=== PATIENT | female | born 1945 | race African-American/Black ===

== ENCOUNTER 2021-05-13 13:39 | Inpatient (IN) | payer MEDICARE, OTHER ==
[~2021-05-13] VITALS: Ht 180.3 cm; Wt 71.2 kg
[2021-05-13] MEDS ORDERED: iron (13:49)
[2021-05-13] MEDS ORDERED: METO5TAB7 PO (13:49)
[2021-05-13] MEDS ORDERED: METO-396 PO (13:49)
[2021-05-13] MEDS ORDERED: FURO40TA5 PO (13:49)
[2021-05-13] MEDS ORDERED: FOLI-43 PO (13:49)
[2021-05-13] MEDS ORDERED: ASPI-1497 PO (13:49)
[2021-05-13] MEDS ORDERED: SEVE800T8 PO (13:49)
[2021-05-13] MEDS ORDERED: ONDANSETRON HCL 4MG/2ML INJ IV STA (14:07)
[2021-05-13 15:50] LABS: HEMATOCRIT. 25.6 % (36.0-48.0); HEMOGLOBIN. 7.9 g/dL (12.0-16.0); MEAN CORPUSCULAR HEMOGLOBIN 27.8 pg (28.0-32.0); MEAN CORPUSCULAR VOLUME 90.4 fL (81.0-99.0); MEAN PLATELET VOLUME 7.6 fl (7.4-10.4); PLATELET 309 x1000/uL (130-400); RED BLOOD CELL COUNT 2.83 mill/uL (4.2-5.4); RED CELL DISTRIBUTION WIDTH 19.8 % (11.6-14.6)
[2021-05-13 15:59] LABS: CHLORIDE 98 mEq/L (98-107)
[2021-05-13 16:10] LABS: PLATELET ESTIMATE NORMAL
[2021-05-13] MEDS: PANTOPRAZOLE SODIUM 40 MG/VIAL IV SCH (21:15)
[2021-05-13] MEDS ORDERED: ACETAMINOPHEN 325MG TABLET PO PRN (21:15)
[2021-05-13] MEDS ORDERED: ONDANSETRON HCL 4MG/2ML INJ IV PRN (21:15)
[2021-05-13] MEDS ORDERED: DIPHENHYDRAMINE 50MG/ML VIAL IV PRN (21:15)
[2021-05-14] VITALS (7 sets, daily range): BP systolic 89–109; BP diastolic 36–65
[2021-05-14 07:59] LABS: HEMATOCRIT. 22.4 % (36.0-48.0); MEAN CORPUSCULAR HEMOGLOBIN 28.3 pg (28.0-32.0); MEAN CORPUSCULAR VOLUME 92.5 fL (81.0-99.0); MEAN PLATELET VOLUME 7.6 fl (7.4-10.4); PLATELET 236 x1000/uL (130-400); RED BLOOD CELL COUNT 2.42 mill/uL (4.2-5.4); RED CELL DISTRIBUTION WIDTH 19.9 % (11.6-14.6)
[2021-05-14 08:07] LABS: CHLORIDE 102 mEq/L (98-107)
[2021-05-14 08:11] LABS: HEMOGLOBIN. 6.8 g/dL (12.0-16.0)
[2021-05-14 08:30] LABS: LDL CHOLESTEROL 17 mg/dL (5-100)
[2021-05-14 08:32] LABS: HDL CHOLESTEROL 45 mg/dL (40-59)
[2021-05-14 08:42] LABS: PLATELET ESTIMATE NORMAL
[2021-05-14] MEDS: PANTOPRAZOLE SODIUM 40 MG/VIAL IV SCH (09:00)
[2021-05-14 12:45] LABS: HEPATITIS B SURFACE ANTIGEN NEGATIVE
[2021-05-14] MEDS: EPOETIN ALFA-EPBX 10,000 UNIT/ML VIAL SUBCUT SCH (21:27)
[2021-05-14] MEDS ORDERED: DEXTROSE 50% WATER 50ML SYRINGE IV PRN (21:30)
[2021-05-14] MEDS: INSULIN LISPRO 100 UNITS/ML SUBCUT SCH (21:34)
[2021-05-14] MEDS: BLOOD SUGAR DIAGNOSTIC STRIP TEST SCH (21:52)
[2021-05-15] VITALS: BP 103/36
[2021-05-15 00:45] LABS: HEMATOCRIT 25.8 % (36.0-48.0); HEMOGLOBIN 8.1 g/dL (12.0-16.0)
[2021-05-15 01:43] LABS: INR 1.2
[2021-05-15 04:00] VITALS: BP 103/39
[2021-05-15] MEDS: BLOOD SUGAR DIAGNOSTIC STRIP TEST SCH ×4 (06:27→21:42)
[2021-05-15] MEDS: INSULIN LISPRO 100 UNITS/ML SUBCUT SCH (06:27)
[2021-05-15 08:00] VITALS: BP 92/40
[2021-05-15] MEDS: PANTOPRAZOLE SODIUM 40 MG/VIAL IV SCH ×2 (08:53→08:54)
[2021-05-15 12:00] VITALS: BP 95/39
[2021-05-15 16:00] VITALS: BP 91/35
[2021-05-15 20:00] VITALS: BP 100/36
[2021-05-16] VITALS: BP 115/47
[2021-05-16 04:00] VITALS: BP 115/47
[2021-05-16] MEDS: BLOOD SUGAR DIAGNOSTIC STRIP TEST SCH ×4 (06:36→21:00)
[2021-05-16 08:00] VITALS: BP 106/56
[2021-05-16] MEDS: PANTOPRAZOLE SODIUM 40 MG/VIAL IV SCH (09:26)
[2021-05-16] MEDS: POVIDONE-IODINE 10% TOPICAL SOLN 240ML TOP SCH (09:26)
[2021-05-16 12:00] VITALS: BP 110/60
[2021-05-16 16:00] VITALS: BP 115/60
[2021-05-16 20:00] VITALS: BP 126/78
[2021-05-16] MEDS: EPOETIN ALFA-EPBX 10,000 UNIT/ML VIAL SUBCUT SCH (22:01)
[2021-05-17] VITALS: BP 110/40
[2021-05-17 04:00] VITALS: BP 132/58
[2021-05-17] MEDS: BLOOD SUGAR DIAGNOSTIC STRIP TEST SCH ×4 (07:59→21:00)
[2021-05-17 08:00] VITALS: BP 116/56
[2021-05-17] MEDS ORDERED: POTASSIUM CHLORIDE 20MEQ/PACKET PO SCH (09:00)
[2021-05-17] MEDS: PANTOPRAZOLE SODIUM 40 MG/VIAL IV SCH (09:53)
[2021-05-17] MEDS: POVIDONE-IODINE 10% TOPICAL SOLN 240ML TOP SCH (09:54)
[2021-05-17 12:00] VITALS: BP 114/51
[2021-05-17 16:00] VITALS: BP 100/41
[2021-05-17 20:00] VITALS: BP 136/69
[2021-05-17] MEDS ORDERED: HEPARIN SODIUM 1,000 UNIT/1ML VIAL IV NR (22:00)
[2021-05-18] VITALS: BP 115/50
[2021-05-18 04:00] VITALS: BP 123/60
[2021-05-18] MEDS: BLOOD SUGAR DIAGNOSTIC STRIP TEST SCH ×3 (07:20→17:48)
[2021-05-18] MEDS: POVIDONE-IODINE 10% TOPICAL SOLN 240ML TOP SCH (09:00)
[2021-05-18] MEDS: PANTOPRAZOLE SODIUM 40 MG/VIAL IV SCH (14:19)
[2021-05-18] MEDS: MAGNESIUM/ALUMINUM HYDROXIDE/SIMETHICONE 30ML UDC PO PRN (14:28)
[2021-05-18 20:00] VITALS: BP 140/53
[2021-05-19] VITALS: BP 134/68
[2021-05-19 02:43] LABS: HEPATITIS B SURFACE ANTIGEN NEGATIVE
[2021-05-19 04:00] VITALS: BP 132/56
[2021-05-19] MEDS: BLOOD SUGAR DIAGNOSTIC STRIP TEST SCH ×4 (06:33→21:00)
[2021-05-19] MEDS: DEXTROSE 50% WATER 50ML SYRINGE IV PRN (06:34)
[2021-05-19] MEDS: INSULIN LISPRO 100 UNITS/ML SUBCUT SCH ×4 (07:50→21:00)
[2021-05-19] MEDS: POVIDONE-IODINE 10% TOPICAL SOLN 240ML TOP SCH (09:00)
[2021-05-19] MEDS: PANTOPRAZOLE SODIUM 40 MG/VIAL IV SCH (09:29)
[2021-05-19 12:00] VITALS: BP 115/51
[2021-05-19 14:36] LABS: CHLORIDE 103 mEq/L (98-107)
[2021-05-19 16:00] VITALS: BP 132/51
[2021-05-19 20:00] VITALS: BP 127/53
[2021-05-19] MEDS: EPOETIN ALFA-EPBX 10,000 UNIT/ML VIAL SUBCUT SCH (21:00)
[2021-05-20] VITALS: BP 122/56
[2021-05-20 04:00] VITALS: BP 135/57
[2021-05-20] MEDS: BLOOD SUGAR DIAGNOSTIC STRIP TEST SCH ×4 (07:09→21:55)
[2021-05-20] MEDS: INSULIN LISPRO 100 UNITS/ML SUBCUT SCH ×4 (07:10→21:57)
[2021-05-20 08:00] VITALS: BP 105/43
[2021-05-20] MEDS: POVIDONE-IODINE 10% TOPICAL SOLN 240ML TOP SCH (10:30)
[2021-05-20] MEDS: PANTOPRAZOLE SODIUM 40 MG/VIAL IV SCH (10:55)
[2021-05-20 12:00] VITALS: BP 129/62
[2021-05-20 16:00] VITALS: BP 122/78
[2021-05-20 20:00] VITALS: BP 121/54
[2021-05-21] VITALS: BP 110/48
[2021-05-21 04:30] VITALS: BP 105/53
[2021-05-21] MEDS: BLOOD SUGAR DIAGNOSTIC STRIP TEST SCH ×4 (06:15→21:06)
[2021-05-21] MEDS: INSULIN LISPRO 100 UNITS/ML SUBCUT SCH ×4 (07:50→21:00)
[2021-05-21 08:00] VITALS: BP 118/56
[2021-05-21] MEDS: POVIDONE-IODINE 10% TOPICAL SOLN 240ML TOP SCH (09:00)
[2021-05-21] MEDS: PANTOPRAZOLE SODIUM 40 MG/VIAL IV SCH (09:50)
[2021-05-21 12:00] VITALS: BP 110/60
[2021-05-21 16:00] VITALS: BP 111/66
[2021-05-21 17:26] LABS: BASOPHILS % 0.5 % (0.0-2.0); EOSINOPHILS % 1.4 % (0.0-5.0); HEMATOCRIT. 28.6 % (36.0-48.0); HEMOGLOBIN. 9.1 g/dL (12.0-16.0); LYMPHOCYTES % 9.6 % (20.0-50.0); MEAN CORPUSCULAR VOLUME 91.1 fL (81.0-99.0); MEAN PLATELET VOLUME 7.6 fl (7.4-10.4); MONOCYTES % 7.9 % (2.0-8.0); NEUTROPHILS % 80.6 % (40.0-76.0); PLATELET 168 x1000/uL (130-400); RED BLOOD CELL COUNT 3.14 mill/uL (4.2-5.4); RED CELL DISTRIBUTION WIDTH 19.4 % (11.6-14.6)
[2021-05-21 17:36] LABS: CHLORIDE 104 mEq/L (98-107)
[2021-05-21 20:00] VITALS: BP 112/75
[2021-05-22] VITALS: BP 107/46
[2021-05-22 04:00] VITALS: BP 152/56
[2021-05-22] MEDS: DEXTROSE 50% WATER 50ML SYRINGE IV PRN (06:32)
[2021-05-22] MEDS: BLOOD SUGAR DIAGNOSTIC STRIP TEST SCH ×4 (06:32→20:08)
[2021-05-22] MEDS: INSULIN LISPRO 100 UNITS/ML SUBCUT SCH ×4 (07:00→20:08)
[2021-05-22 08:00] VITALS: BP_SYST 120; BP_SYST 127; BP_DIAS 55; BP_DIAS 60
[2021-05-22] MEDS: POVIDONE-IODINE 10% TOPICAL SOLN 240ML TOP SCH (09:00)
[2021-05-22] MEDS: PANTOPRAZOLE SODIUM 40 MG/VIAL IV SCH (09:58)
[2021-05-22 12:00] VITALS: BP_SYST 122; BP_SYST 127; BP_DIAS 55; BP_DIAS 58
[2021-05-22 15:42] VITALS: BP 122/58
[2021-05-22 20:00] VITALS: BP 123/72
[2021-05-23] VITALS: BP 128/51
[2021-05-23 00:28] LABS: HEPATITIS B SURFACE ANTIGEN NEGATIVE
[2021-05-23 04:00] VITALS: BP 100/50
[2021-05-23] MEDS: BLOOD SUGAR DIAGNOSTIC STRIP TEST SCH ×4 (06:39→20:36)
[2021-05-23] MEDS: INSULIN LISPRO 100 UNITS/ML SUBCUT SCH ×4 (07:50→20:36)
[2021-05-23 08:00] VITALS: BP 104/42
[2021-05-23] MEDS: PANTOPRAZOLE SODIUM 40 MG/VIAL IV SCH (10:43)
[2021-05-23 12:00] VITALS: BP 114/48
[2021-05-23 15:51] VITALS: BP 133/51
[2021-05-23] MEDS: POVIDONE-IODINE 10% TOPICAL SOLN 240ML TOP SCH (18:45)
[2021-05-23 20:00] VITALS: BP 120/67
[2021-05-24] VITALS: BP 112/50
[2021-05-24 04:00] VITALS: BP_SYST 121; BP_SYST 142; BP_DIAS 73; BP_DIAS 83
[2021-05-24] MEDS: BLOOD SUGAR DIAGNOSTIC STRIP TEST SCH ×3 (06:32→21:00)
[2021-05-24] MEDS: INSULIN LISPRO 100 UNITS/ML SUBCUT SCH ×3 (07:28→21:00)
[2021-05-24 08:11] VITALS: BP 131/51
[2021-05-24] MEDS: PANTOPRAZOLE SODIUM 40 MG/VIAL IV SCH (09:30)
[2021-05-24 11:56] VITALS: BP 126/51
[2021-05-24] MEDS: POVIDONE-IODINE 10% TOPICAL SOLN 240ML TOP SCH (13:00)
[2021-05-24 16:31] VITALS: BP 125/47
[2021-05-24] MEDS ORDERED: HEPARIN SODIUM 1,000 UNIT/1ML VIAL IV NR (18:15)
[2021-05-24 20:00] VITALS: BP 120/34
[2021-05-25] VITALS: BP 119/41
[2021-05-25 04:00] VITALS: BP 96/51
[2021-05-25] MEDS: BLOOD SUGAR DIAGNOSTIC STRIP TEST SCH ×4 (06:40→21:00)
[2021-05-25] MEDS: INSULIN LISPRO 100 UNITS/ML SUBCUT SCH ×4 (07:50→21:00)
[2021-05-25 08:00] VITALS: BP 131/60
[2021-05-25] MEDS: PANTOPRAZOLE SODIUM 40 MG/VIAL IV SCH (08:46)
[2021-05-25] MEDS: POVIDONE-IODINE 10% TOPICAL SOLN 240ML TOP SCH (08:47)
[2021-05-25 12:00] VITALS: BP 112/51
[2021-05-25 16:00] VITALS: BP 121/53
[2021-05-25 20:00] VITALS: BP 116/46
[2021-05-26] VITALS: BP 114/50
[2021-05-26 04:00] VITALS: BP 114/44
[2021-05-26] MEDS: DEXTROSE 50% WATER 50ML SYRINGE IV PRN (05:58)
[2021-05-26] MEDS: BLOOD SUGAR DIAGNOSTIC STRIP TEST SCH ×4 (07:20→20:50)
[2021-05-26 07:21] LABS: BASOPHILS % 0.5 % (0.0-2.0); EOSINOPHILS % 1.4 % (0.0-5.0); HEMATOCRIT. 24.7 % (36.0-48.0); MEAN CORPUSCULAR HEMOGLOBIN 28.7 pg (28.0-32.0); MEAN CORPUSCULAR VOLUME 88.8 fL (81.0-99.0); MEAN PLATELET VOLUME 7.2 fl (7.4-10.4); NEUTROPHILS % 74.1 % (40.0-76.0); PLATELET 202 x1000/uL (130-400); RED BLOOD CELL COUNT 2.79 mill/uL (4.2-5.4); RED CELL DISTRIBUTION WIDTH 19.1 % (11.6-14.6)
[2021-05-26] MEDS: INSULIN LISPRO 100 UNITS/ML SUBCUT SCH ×4 (07:50→20:50)
[2021-05-26] MEDS: PANTOPRAZOLE SODIUM 40 MG/VIAL IV SCH (10:47)
[2021-05-26 12:00] VITALS: BP 121/51
[2021-05-26 16:00] VITALS: BP 125/48
[2021-05-26] MEDS: POVIDONE-IODINE 10% TOPICAL SOLN 240ML TOP SCH (16:00)
[2021-05-26 20:00] VITALS: BP 100/39
[2021-05-26] MEDS: EPOETIN ALFA-EPBX 10,000 UNIT/ML VIAL SUBCUT SCH (20:50)
[2021-05-27 00:15] VITALS: BP 119/53
[2021-05-27 04:00] VITALS: BP 108/49
[2021-05-27] MEDS: BLOOD SUGAR DIAGNOSTIC STRIP TEST SCH ×4 (07:20→21:00)
[2021-05-27] MEDS: INSULIN LISPRO 100 UNITS/ML SUBCUT SCH ×4 (07:50→21:00)
[2021-05-27 08:00] VITALS: BP 124/45
[2021-05-27] MEDS: PANTOPRAZOLE SODIUM 40 MG/VIAL IV SCH (09:35)
[2021-05-27] MEDS: POVIDONE-IODINE 10% TOPICAL SOLN 240ML TOP SCH (09:36)
[2021-05-27 12:00] VITALS: BP 112/49
[2021-05-27 16:00] VITALS: BP 113/55
[2021-05-27 20:00] VITALS: BP 117/53
[2021-05-28] VITALS (7 sets, daily range): BP systolic 118–140; BP diastolic 43–82
[2021-05-28] MEDS: INSULIN LISPRO 100 UNITS/ML SUBCUT SCH ×4 (07:50→21:00)
[2021-05-28] MEDS: BLOOD SUGAR DIAGNOSTIC STRIP TEST SCH ×4 (07:56→21:18)
[2021-05-28] MEDS: PANTOPRAZOLE SODIUM 40 MG/VIAL IV SCH (09:42)
[2021-05-28] MEDS: POVIDONE-IODINE 10% TOPICAL SOLN 240ML TOP SCH (09:51)
[2021-05-28 19:46] LABS: HEPATITIS B SURFACE ANTIGEN NEGATIVE
[2021-05-28] MEDS: EPOETIN ALFA-EPBX 10,000 UNIT/ML VIAL SUBCUT SCH (22:18)
[2021-05-29] VITALS: BP 119/50
[2021-05-29 04:00] VITALS: BP 126/42
[2021-05-29] MEDS: INSULIN LISPRO 100 UNITS/ML SUBCUT SCH ×3 (07:50→18:58)
[2021-05-29] MEDS: BLOOD SUGAR DIAGNOSTIC STRIP TEST SCH ×3 (07:52→17:20)
[2021-05-29 08:00] VITALS: BP 136/61
[2021-05-29 08:28] VITALS: BP 136/61
[2021-05-29] MEDS: PANTOPRAZOLE SODIUM 40 MG/VIAL IV SCH (09:47)
[2021-05-29] MEDS: POVIDONE-IODINE 10% TOPICAL SOLN 240ML TOP SCH (09:48)
[2021-05-29 12:22] VITALS: BP 120/34
[2021-05-29 16:17] VITALS: BP 139/64
[2021-05-30 04:00] VITALS: BP 137/65
[2021-05-30] MEDS: BLOOD SUGAR DIAGNOSTIC STRIP TEST SCH ×4 (07:20→21:37)
[2021-05-30] MEDS: INSULIN LISPRO 100 UNITS/ML SUBCUT SCH ×4 (07:50→21:37)
[2021-05-30 08:00] VITALS: BP 135/66
[2021-05-30] MEDS: PANTOPRAZOLE SODIUM 40 MG/VIAL IV SCH (10:35)
[2021-05-30] MEDS: POVIDONE-IODINE 10% TOPICAL SOLN 240ML TOP SCH (10:38)
[2021-05-30 12:00] VITALS: BP 118/34
[2021-05-30 16:15] VITALS: BP 106/42
[2021-05-30 17:16] VITALS: BP 135/66
[2021-05-30 20:00] VITALS: BP 106/55
[2021-05-30] MEDS: EPOETIN ALFA-EPBX 10,000 UNIT/ML VIAL SUBCUT SCH (21:37)
[2021-05-31] VITALS: BP 108/55
[2021-05-31 04:00] VITALS: BP 108/50
[2021-05-31] MEDS: INSULIN LISPRO 100 UNITS/ML SUBCUT SCH ×4 (07:50→21:00)
[2021-05-31] MEDS: BLOOD SUGAR DIAGNOSTIC STRIP TEST SCH ×4 (07:52→21:00)
[2021-05-31 08:10] VITALS: BP 106/31
[2021-05-31] MEDS: PANTOPRAZOLE SODIUM 40 MG/VIAL IV SCH (08:48)
[2021-05-31] MEDS: POVIDONE-IODINE 10% TOPICAL SOLN 240ML TOP SCH (08:49)
[2021-05-31 12:00] VITALS: BP 108/28
[2021-05-31 16:00] VITALS: BP 101/80
[2021-05-31 20:00] VITALS: BP 107/47
[2021-06-01] VITALS (7 sets, daily range): BP systolic 102–134; BP diastolic 39–70
[2021-06-01] MEDS: INSULIN LISPRO 100 UNITS/ML SUBCUT SCH ×4 (06:52→22:05)
[2021-06-01] MEDS: BLOOD SUGAR DIAGNOSTIC STRIP TEST SCH ×4 (07:16→21:00)
[2021-06-01] MEDS: PANTOPRAZOLE SODIUM 40 MG/VIAL IV SCH (08:35)
[2021-06-01] MEDS: POVIDONE-IODINE 10% TOPICAL SOLN 240ML TOP SCH (08:36)
[2021-06-01] MEDS: SODIUM HYPOCHLORITE 0.125% 473ML SOLUTION TOP SCH ×2 (14:49→22:08)
[2021-06-01 18:11] LABS: BASOPHILS % 0.4 % (0.0-2.0); EOSINOPHILS % 1.3 % (0.0-5.0); HEMOGLOBIN. 7.8 g/dL (12.0-16.0); LYMPHOCYTES % 8.9 % (20.0-50.0); MEAN CORPUSCULAR VOLUME 89.8 fL (81.0-99.0); MEAN PLATELET VOLUME 7.6 fl (7.4-10.4); MONOCYTES % 5.9 % (2.0-8.0); NEUTROPHILS % 83.5 % (40.0-76.0); PLATELET 251 x1000/uL (130-400); RED BLOOD CELL COUNT 2.78 mill/uL (4.2-5.4); RED CELL DISTRIBUTION WIDTH 18.4 % (11.6-14.6)
[2021-06-01 18:19] LABS: CHLORIDE 100 mEq/L (98-107)
[2021-06-01 18:49] LABS: HEPATITIS B SURFACE ANTIGEN NEGATIVE
[2021-06-02] VITALS: BP 109/47
[2021-06-02 04:00] VITALS: BP 115/49
[2021-06-02] MEDS: BLOOD SUGAR DIAGNOSTIC STRIP TEST SCH ×4 (07:20→21:00)
[2021-06-02] MEDS: INSULIN LISPRO 100 UNITS/ML SUBCUT SCH ×4 (07:50→21:00)
[2021-06-02 08:10] VITALS: BP 104/32
[2021-06-02] MEDS: PANTOPRAZOLE SODIUM 40 MG/VIAL IV SCH (09:08)
[2021-06-02] MEDS: MAGNESIUM/ALUMINUM HYDROXIDE/SIMETHICONE 30ML UDC PO PRN (09:09)
[2021-06-02] MEDS: POVIDONE-IODINE 10% TOPICAL SOLN 240ML TOP SCH (09:09)
[2021-06-02] MEDS: SODIUM HYPOCHLORITE 0.125% 473ML SOLUTION TOP SCH ×2 (09:09→21:00)
[2021-06-02 12:34] VITALS: BP 98/41
[2021-06-02 16:25] VITALS: BP 114/47
[2021-06-02] MEDS ORDERED: EPOETIN ALFA-EPBX 4,000 UNIT/ML VIAL SUBCUT SCH (21:00)
[2021-06-02] MEDS ORDERED: EPOETIN ALFA-EPBX 10,000 UNIT/ML VIAL SUBCUT SCH (21:00)
[2021-06-03] MEDS: INSULIN LISPRO 100 UNITS/ML SUBCUT SCH ×3 (07:50→17:27)
[2021-06-03 08:00] VITALS: BP 117/45
[2021-06-03] MEDS: BLOOD SUGAR DIAGNOSTIC STRIP TEST SCH ×3 (08:10→17:25)
[2021-06-03] MEDS: PANTOPRAZOLE SODIUM 40 MG/VIAL IV SCH (09:27)
[2021-06-03] MEDS: SODIUM HYPOCHLORITE 0.125% 473ML SOLUTION TOP SCH (09:27)
[2021-06-03] MEDS: POVIDONE-IODINE 10% TOPICAL SOLN 240ML TOP SCH (09:28)
[2021-06-03 12:00] VITALS: BP 100/41
[2021-06-03 15:30] VITALS: BP 103/42
[2021-06-03 16:00] VITALS: BP 103/42
== END 2021-06-03 18:18 | DRG 70 ==
LOC: ER 13:39 → EDBEDREQ 16:05 → EDBEDREQTM 16:05 → EDBEDREQSVC 16:05 → EDBEDREQ 17:27 → EDBEDREQTM 17:27 → MICUSO 05-14 01:30 → 6WST 05-14 11:41
PROVIDERS: ADMIT Hospitalist; ATTEND Hospitalist
PROC: 30233N1 Transfusion of Nonautologous Red Blood Cells into Peripheral Vein, Percutaneous Approach (ICD-10-PCS; principal; 2021-05-14)
PROC: 5A1D70Z Performance of Urinary Filtration, Intermittent, Less than 6 Hours Per Day (ICD-10-PCS; 2021-05-14)
PROC: 5A1D70Z Performance of Urinary Filtration, Intermittent, Less than 6 Hours Per Day (ICD-10-PCS; 2021-05-16)
PROC: 5A1D70Z Performance of Urinary Filtration, Intermittent, Less than 6 Hours Per Day (ICD-10-PCS; 2021-05-19)
PROC: 5A1D70Z Performance of Urinary Filtration, Intermittent, Less than 6 Hours Per Day (ICD-10-PCS; 2021-05-23)
PROC: 5A1D70Z Performance of Urinary Filtration, Intermittent, Less than 6 Hours Per Day (ICD-10-PCS; 2021-05-26)
PROC: 5A1D70Z Performance of Urinary Filtration, Intermittent, Less than 6 Hours Per Day (ICD-10-PCS; 2021-05-28)
PROC: 5A1D70Z Performance of Urinary Filtration, Intermittent, Less than 6 Hours Per Day (ICD-10-PCS; 2021-05-30)
PROC: 5A1D70Z Performance of Urinary Filtration, Intermittent, Less than 6 Hours Per Day (ICD-10-PCS; 2021-06-02)
DX: G93.49 Other encephalopathy (principal); L89.894 Pressure ulcer of other site, stage 4; L89.154 Pressure ulcer of sacral region, stage 4; N18.6 End stage renal disease; R53.2 Functional quadriplegia; E43 Unspecified severe protein-calorie malnutrition; I50.33 Acute on chronic diastolic (congestive) heart failure; I48.92 Unspecified atrial flutter; N82.3 Fistula of vagina to large intestine; R78.81 Bacteremia; I13.2 Hypertensive heart and chronic kidney disease with heart failure and with stage 5 chronic kidney disease, or end stage renal disease; E78.5 Hyperlipidemia, unspecified; I27.20 Pulmonary hypertension, unspecified; B96.20 Unspecified Escherichia coli [E. coli] as the cause of diseases classified elsewhere; Z20.822 Contact with and (suspected) exposure to COVID-19; I77.1 Stricture of artery; E11.22 Type 2 diabetes mellitus with diabetic chronic kidney disease; D63.1 Anemia in chronic kidney disease; F03.90 Unspecified dementia, unspecified severity, without behavioral disturbance, psychotic disturbance, mood disturbance, and anxiety; E11.42 Type 2 diabetes mellitus with diabetic polyneuropathy; R53.81 Other malaise; E11.649 Type 2 diabetes mellitus with hypoglycemia without coma; E11.51 Type 2 diabetes mellitus with diabetic peripheral angiopathy without gangrene; S90.922A Unspecified superficial injury of left foot, initial encounter; S90.921A Unspecified superficial injury of right foot, initial encounter; X58.XXXA Exposure to other specified factors, initial encounter; Y93.89 Activity, other specified; Z99.2 Dependence on renal dialysis; Z86.73 Personal history of transient ischemic attack (TIA), and cerebral infarction without residual deficits; Y92.89 Other specified places as the place of occurrence of the external cause; Y99.8 Other external cause status
CPT/HCPCS: 36415; 71045; 80048; 80053; 80061; 82040; 82962; 83036; 83605; 83880; 84134; 84145; 84484; 85014; 85018; 85025; 85049; 85384; 86705; 86709; 86803; 86850; 86900; 86920; 87340; 87426; 93005; 93923; 93970; 97110; 97162; 97530; 99285; C1893; C9113; J0885; J1644; J1815; J2405; P9016

== ENCOUNTER 2021-06-09 13:11 | Inpatient (IN) | payer MEDICARE ==
[~2021-06-09] VITALS: Ht 165.1 cm; Wt 78.5 kg
[~2021-06-09 13:11] MED LIST: ASPI-1497 PO; FOLI-43 PO; FURO40TA5 PO; METO-396 PO; METO5TAB7 PO; SEVE800T8 PO; iron
[2021-06-09] MEDS ORDERED: VANCOMYCIN 1G PREMIX 200 ML IV SCH (13:45)
[2021-06-09 14:27] LABS: HEMATOCRIT. 26.1 % (36.0-48.0); HEMOGLOBIN. 8.4 g/dL (12.0-16.0); MEAN CORPUSCULAR HEMOGLOBIN 28.3 pg (28.0-32.0); MEAN CORPUSCULAR VOLUME 87.5 fL (81.0-99.0); MEAN PLATELET VOLUME 7.7 fl (7.4-10.4); PLATELET 310 x1000/uL (130-400); RED BLOOD CELL COUNT 2.98 mill/uL (4.2-5.4)
[2021-06-09 14:29] LABS: CHLORIDE 99 mEq/L (98-107)
[2021-06-09] MEDS ORDERED: CIPR-263 MT (14:45)
[2021-06-09] MEDS ORDERED: FUROSEMIDE 100MG/10ML VIAL IV ONE (14:45)
[2021-06-09] MEDS ORDERED: DEXTROSE 50% WATER 50ML SYRINGE IV ONE (14:45)
[2021-06-09] MEDS ORDERED: CALCIUM GLUCONATE 1GM PREMIX 50 ML IV NR (14:45)
[2021-06-09] MEDS ORDERED: INSULIN REGULAR (HUMULIN R) 300UNITS/3ML VIAL IV ONE (14:45)
[2021-06-09] MEDS ORDERED: CALCIUM GLUCONATE 1,000 MG in DEXT 5% WATER 100 ML IV ONE (14:45)
[2021-06-09 15:57] LABS: PLATELET ESTIMATE NORMAL
[2021-06-10] MEDS ORDERED: ACETAMINOPHEN 325MG TABLET PO PRN (00:30)
[2021-06-10] MEDS ORDERED: ONDANSETRON HCL 4MG/2ML INJ IV PRN (00:30)
[2021-06-10] MEDS ORDERED: DOCUSATE SODIUM 100MG CAPSULE PO PRN (00:30)
[2021-06-10] MEDS ORDERED: CLONIDINE 0.1MG TABLET PO PRN (00:30)
[2021-06-10] MEDS: HEPARIN 5000 UNITS/ML VIAL SUBCUT SCH (07:15)
[2021-06-10 12:10] LABS: HEMATOCRIT. 21.6 % (36.0-48.0); HEMOGLOBIN. 7.1 g/dL (12.0-16.0); MEAN CORPUSCULAR HEMOGLOBIN 28.5 pg (28.0-32.0); MEAN CORPUSCULAR VOLUME 87.3 fL (81.0-99.0); MEAN PLATELET VOLUME 7.4 fl (7.4-10.4); PLATELET 254 x1000/uL (130-400); RED BLOOD CELL COUNT 2.48 mill/uL (4.2-5.4); RED CELL DISTRIBUTION WIDTH 16.9 % (11.6-14.6)
[2021-06-10 12:56] LABS: PLATELET ESTIMATE NORMAL
[2021-06-10] MEDS ORDERED: CEFEPIME 2,000 MG in DEXT 5% WATER 100 ML IV SCH (13:00)
[2021-06-10 15:07] VITALS: BP 110/60
[2021-06-10 15:10] VITALS: BP 110/60
[2021-06-10 15:22] VITALS: BP 125/70
[2021-06-10] MEDS: CEFEPIME 1,000 MG in DEXTROSE 5% WATER 50 ML IV SCH ×2 (15:30→21:08)
[2021-06-10 15:42] LABS: HEPATITIS B SURFACE ANTIGEN NEGATIVE
[2021-06-10] MEDS: MEGESTROL ACETATE 400 MG/10 ML UDC PO SCH (16:41)
[2021-06-10] MEDS ORDERED: VANCOMYCIN 500MG PREMIX 100 ML IV NR (17:00)
[2021-06-10 20:00] VITALS: BP 115/43
[2021-06-10] MEDS: MIRTAZAPINE 15MG TABLET PO SCH (21:08)
[2021-06-11] VITALS: BP 136/49
[2021-06-11 04:00] VITALS: BP 131/47
[2021-06-11 07:36] LABS: BASOPHILS % 0.5 % (0.0-2.0); EOSINOPHILS % 2.9 % (0.0-5.0); HEMATOCRIT. 24.3 % (36.0-48.0); HEMOGLOBIN. 7.9 g/dL (12.0-16.0); LYMPHOCYTES % 8.2 % (20.0-50.0); MEAN CORPUSCULAR HEMOGLOBIN 28.6 pg (28.0-32.0); MEAN CORPUSCULAR VOLUME 87.8 fL (81.0-99.0); MEAN PLATELET VOLUME 7.5 fl (7.4-10.4); MONOCYTES % 8.4 % (2.0-8.0); PLATELET 248 x1000/uL (130-400); RED BLOOD CELL COUNT 2.76 mill/uL (4.2-5.4); RED CELL DISTRIBUTION WIDTH 16.6 % (11.6-14.6)
[2021-06-11 08:00] VITALS: BP 126/50
[2021-06-11 08:05] LABS: CHLORIDE 105 mEq/L (98-107)
[2021-06-11] MEDS: MEGESTROL ACETATE 400 MG/10 ML UDC PO SCH (08:51)
[2021-06-11] MEDS: SODIUM HYPOCHLORITE 0.125% 473ML SOLUTION TOP SCH (08:53)
[2021-06-11 12:00] VITALS: BP 126/45
[2021-06-11 16:00] VITALS: BP 122/47
[2021-06-11] MEDS: INSULIN LISPRO 100 UNITS/ML SUBCUT SCH ×2 (17:50→21:57)
[2021-06-11] MEDS: BLOOD SUGAR DIAGNOSTIC STRIP TEST SCH ×2 (18:26→21:57)
[2021-06-11] MEDS: ASPIRIN 81MG TABLET PO SCH (18:29)
[2021-06-11] MEDS: IRON SUCROSE COMPLEX 100 MG/5 ML ML IV SCH (18:29)
[2021-06-11] MEDS: MIRTAZAPINE 15MG TABLET PO SCH (21:59)
[2021-06-11] MEDS: EPOETIN ALFA-EPBX 10,000 UNIT/ML VIAL SUBCUT SCH (22:21)
[2021-06-11] MEDS: METOPROLOL SUCCINATE 50MG ER TABLET PO SCH (22:36)
[2021-06-12] MEDS: BLOOD SUGAR DIAGNOSTIC STRIP TEST SCH ×3 (06:59→21:45)
[2021-06-12] MEDS: DEXTROSE 50% WATER 50ML SYRINGE IV PRN (07:00)
[2021-06-12] MEDS: INSULIN LISPRO 100 UNITS/ML SUBCUT SCH ×3 (07:50→21:45)
[2021-06-12 08:00] VITALS: BP 105/80
[2021-06-12] MEDS ORDERED: DIATR MEGLU/DIATRIZOATE SOLN 30ML PO SCH (10:15)
[2021-06-12] MEDS: ZINC SULFATE 220 MG ( 50 ) CAPSULE PO SCH (11:04)
[2021-06-12] MEDS: FUROSEMIDE 40MG TABLET PO SCH (11:04)
[2021-06-12] MEDS: MEGESTROL ACETATE 400 MG/10 ML UDC PO SCH (11:04)
[2021-06-12] MEDS: ASCORBIC ACID 500 MG TABLET PO SCH (11:04)
[2021-06-12] MEDS: ASPIRIN 81MG TABLET PO SCH (11:04)
[2021-06-12] MEDS: METOPROLOL SUCCINATE 50MG ER TABLET PO SCH (11:56)
[2021-06-12 12:00] VITALS: BP 117/60
[2021-06-12] MEDS ORDERED: VANCOMYCIN 750 MG in DEXT 5% WATER 250 ML IV NR (14:00)
[2021-06-12] MEDS ORDERED: IOHEXOL-300 100 ML BOTTLE ONE (15:11)
[2021-06-12 16:00] VITALS: BP 125/57
[2021-06-12 17:53] LABS: HEMATOCRIT. 26.6 % (36.0-48.0); HEMOGLOBIN. 8.3 g/dL (12.0-16.0); MEAN CORPUSCULAR HEMOGLOBIN 27.4 pg (28.0-32.0); MEAN CORPUSCULAR VOLUME 88.2 fL (81.0-99.0); MEAN PLATELET VOLUME 7.4 fl (7.4-10.4); PLATELET 301 x1000/uL (130-400); RED BLOOD CELL COUNT 3.02 mill/uL (4.2-5.4); RED CELL DISTRIBUTION WIDTH 16.9 % (11.6-14.6)
[2021-06-12 18:26] LABS: PLATELET ESTIMATE NORMAL
[2021-06-12] MEDS: CEFEPIME 1,000 MG in DEXTROSE 5% WATER 50 ML IV SCH (18:44)
[2021-06-12 20:00] VITALS: BP 131/55
[2021-06-12] MEDS ORDERED: HEPARIN SODIUM 1,000 UNIT/1ML VIAL IV SCH (20:30)
[2021-06-12] MEDS: MIRTAZAPINE 15MG TABLET PO SCH (21:49)
[2021-06-12] MEDS: IRON SUCROSE COMPLEX 100 MG/5 ML ML IV SCH (21:50)
[2021-06-13] VITALS: BP 131/55
[2021-06-13 04:00] VITALS: BP 147/85
[2021-06-13 06:50] LABS: BASOPHILS % 0.5 % (0.0-2.0); HEMATOCRIT. 26.3 % (36.0-48.0); HEMOGLOBIN. 8.2 g/dL (12.0-16.0); LYMPHOCYTES % 7.6 % (20.0-50.0); MEAN CORPUSCULAR HEMOGLOBIN 27.9 pg (28.0-32.0); MEAN CORPUSCULAR VOLUME 89.4 fL (81.0-99.0); MEAN PLATELET VOLUME 8.5 fl (7.4-10.4); MONOCYTES % 5.7 % (2.0-8.0); NEUTROPHILS % 84.2 % (40.0-76.0); PLATELET 259 x1000/uL (130-400); RED BLOOD CELL COUNT 2.94 mill/uL (4.2-5.4); RED CELL DISTRIBUTION WIDTH 16.9 % (11.6-14.6)
[2021-06-13] MEDS: BLOOD SUGAR DIAGNOSTIC STRIP TEST SCH ×4 (06:56→21:33)
[2021-06-13] MEDS: HEPARIN 5000 UNITS/ML VIAL SUBCUT SCH ×3 (07:00→21:34)
[2021-06-13] MEDS: INSULIN LISPRO 100 UNITS/ML SUBCUT SCH ×4 (07:45→21:00)
[2021-06-13 08:00] VITALS: BP 108/52
[2021-06-13] MEDS: ASPIRIN 81MG TABLET PO SCH (09:00)
[2021-06-13] MEDS: ZINC SULFATE 220 MG ( 50 ) CAPSULE PO SCH (09:00)
[2021-06-13] MEDS: METOPROLOL SUCCINATE 50MG ER TABLET PO SCH (09:00)
[2021-06-13] MEDS: FUROSEMIDE 40MG TABLET PO SCH (09:00)
[2021-06-13] MEDS: MEGESTROL ACETATE 400 MG/10 ML UDC PO SCH (09:00)
[2021-06-13] MEDS: ASCORBIC ACID 500 MG TABLET PO SCH (09:00)
[2021-06-13] MEDS: SODIUM HYPOCHLORITE 0.125% 473ML SOLUTION TOP SCH (09:01)
[2021-06-13] MEDS ORDERED: BISACODYL 5MG TABLET PO PRN (11:00)
[2021-06-13 12:00] VITALS: BP 134/65
[2021-06-13] MEDS: METRONIDAZOLE 500 MG PREMIX 100 ML IV SCH ×2 (15:03→21:40)
[2021-06-13] MEDS: DOXYCYCLINE 100 MG in DEXT 5% WATER 100 ML IV SCH (15:54)
[2021-06-13 16:00] VITALS: BP 115/61
[2021-06-13] MEDS: CEFEPIME 1,000 MG in DEXTROSE 5% WATER 50 ML IV SCH (17:09)
[2021-06-13] MEDS: IRON SUCROSE COMPLEX 100 MG/5 ML ML IV SCH (17:09)
[2021-06-13 20:00] VITALS: BP 126/63
[2021-06-13] MEDS: EPOETIN ALFA-EPBX 10,000 UNIT/ML VIAL SUBCUT SCH (21:35)
[2021-06-13] MEDS: MIRTAZAPINE 15MG TABLET PO SCH (22:50)
[2021-06-14] VITALS: BP 141/70
[2021-06-14] MEDS: DOXYCYCLINE 100 MG in DEXT 5% WATER 100 ML IV SCH ×2 (02:12→17:45)
[2021-06-14 04:00] VITALS: BP 135/70
[2021-06-14] MEDS: METRONIDAZOLE 500 MG PREMIX 100 ML IV SCH ×3 (05:31→21:35)
[2021-06-14] MEDS: HEPARIN 5000 UNITS/ML VIAL SUBCUT SCH ×3 (05:31→21:44)
[2021-06-14] MEDS: INSULIN LISPRO 100 UNITS/ML SUBCUT SCH ×4 (07:50→21:00)
[2021-06-14 08:00] VITALS: BP 102/54
[2021-06-14] MEDS: METOPROLOL SUCCINATE 50MG ER TABLET PO SCH (09:00)
[2021-06-14] MEDS: ASPIRIN 81MG TABLET PO SCH (10:58)
[2021-06-14] MEDS: FUROSEMIDE 40MG TABLET PO SCH (10:58)
[2021-06-14] MEDS: ASCORBIC ACID 500 MG TABLET PO SCH (10:58)
[2021-06-14] MEDS: MEGESTROL ACETATE 400 MG/10 ML UDC PO SCH (10:58)
[2021-06-14] MEDS: ZINC SULFATE 220 MG ( 50 ) CAPSULE PO SCH (10:59)
[2021-06-14] MEDS: SODIUM HYPOCHLORITE 0.125% 473ML SOLUTION TOP SCH (10:59)
[2021-06-14 12:00] VITALS: BP 128/49
[2021-06-14] MEDS: BLOOD SUGAR DIAGNOSTIC STRIP TEST SCH ×3 (12:20→21:36)
[2021-06-14 13:48] LABS: HEPATITIS B SURFACE ANTIGEN NEGATIVE
[2021-06-14 16:00] VITALS: BP 123/52
[2021-06-14] MEDS: IRON SUCROSE COMPLEX 100 MG/5 ML ML IV SCH (18:35)
[2021-06-14] MEDS: CEFEPIME 1,000 MG in DEXTROSE 5% WATER 50 ML IV SCH (18:36)
[2021-06-14 20:00] VITALS: BP 133/66
[2021-06-14] MEDS: MIRTAZAPINE 15MG TABLET PO SCH (21:34)
[2021-06-15] VITALS: BP 128/58
[2021-06-15] MEDS: DOXYCYCLINE 100 MG in DEXT 5% WATER 100 ML IV SCH (03:08)
[2021-06-15 04:00] VITALS: BP 121/69
[2021-06-15] MEDS: METRONIDAZOLE 500 MG PREMIX 100 ML IV SCH ×3 (05:49→20:19)
[2021-06-15] MEDS: HEPARIN 5000 UNITS/ML VIAL SUBCUT SCH (05:50)
[2021-06-15 06:22] LABS: HEMATOCRIT. 24.5 % (36.0-48.0); HEMOGLOBIN. 7.7 g/dL (12.0-16.0); MEAN CORPUSCULAR HEMOGLOBIN 27.4 pg (28.0-32.0); MEAN CORPUSCULAR VOLUME 87.1 fL (81.0-99.0); MEAN PLATELET VOLUME 7.9 fl (7.4-10.4); PLATELET 306 x1000/uL (130-400); RED BLOOD CELL COUNT 2.81 mill/uL (4.2-5.4); RED CELL DISTRIBUTION WIDTH 17.6 % (11.6-14.6)
[2021-06-15] MEDS: INSULIN LISPRO 100 UNITS/ML SUBCUT SCH ×4 (07:01→20:19)
[2021-06-15 07:30] VITALS: BP 122/50
[2021-06-15] MEDS: METOPROLOL SUCCINATE 50MG ER TABLET PO SCH (09:00)
[2021-06-15] MEDS: ZINC SULFATE 220 MG ( 50 ) CAPSULE PO SCH (09:00)
[2021-06-15] MEDS: MEGESTROL ACETATE 400 MG/10 ML UDC PO SCH (09:00)
[2021-06-15] MEDS: ASCORBIC ACID 500 MG TABLET PO SCH (09:00)
[2021-06-15] MEDS: FUROSEMIDE 40MG TABLET PO SCH (09:00)
[2021-06-15 12:00] VITALS: BP 132/65
[2021-06-15] MEDS: BLOOD SUGAR DIAGNOSTIC STRIP TEST SCH ×3 (12:24→20:19)
[2021-06-15] MEDS: SODIUM HYPOCHLORITE 0.125% 473ML SOLUTION TOP SCH (12:25)
[2021-06-15] MEDS: DEXTROSE 50% WATER 50ML SYRINGE IV PRN (12:26)
[2021-06-15 16:00] VITALS: BP 123/66
[2021-06-15] MEDS ORDERED: ALTEPLASE 100MG/VIAL IV ONE (18:00)
[2021-06-15] MEDS ORDERED: ALTEPLASE 2MG/VIAL ITC NR (18:30)
[2021-06-15] MEDS: IRON SUCROSE COMPLEX 100 MG/5 ML ML IV SCH (18:54)
[2021-06-15] MEDS: CEFEPIME 1,000 MG in DEXTROSE 5% WATER 50 ML IV SCH (18:55)
[2021-06-15] MEDS ORDERED: DEXT 5%/0.9% NACL 1,000 ML IV ONE (19:45)
[2021-06-15] MEDS ORDERED: DEXT 5%/0.9% NACL 1,000 ML IV SCH ×2 (19:45→20:00)
[2021-06-15 20:00] VITALS: BP 120/77
[2021-06-15 20:41] LABS: PLATELET ESTIMATE NORMAL
[2021-06-15] MEDS ORDERED: VANCOMYCIN 500MG PREMIX 100 ML IV NR (21:00)
[2021-06-15] MEDS: MIRTAZAPINE 15MG TABLET PO SCH (21:13)
[2021-06-15] MEDS: DEXT 5%/0.9% NACL 1,000 ML IV SCH (21:14)
[2021-06-15] MEDS ORDERED: SODIUM CHLORIDE 0.45% 1,000 ML IV SCH (23:50)
[2021-06-16] VITALS: BP 123/71
[2021-06-16 04:00] VITALS: BP 107/60
[2021-06-16] MEDS: INSULIN LISPRO 100 UNITS/ML SUBCUT SCH ×4 (05:55→21:00)
[2021-06-16] MEDS: BLOOD SUGAR DIAGNOSTIC STRIP TEST SCH ×4 (05:55→21:48)
[2021-06-16 08:07] VITALS: BP 98/94
[2021-06-16] MEDS: METOPROLOL SUCCINATE 50MG ER TABLET PO SCH (09:00)
[2021-06-16] MEDS: ASCORBIC ACID 500 MG TABLET PO SCH (09:00)
[2021-06-16] MEDS: ZINC SULFATE 220 MG ( 50 ) CAPSULE PO SCH (09:24)
[2021-06-16] MEDS: METRONIDAZOLE 500 MG PREMIX 100 ML IV SCH (09:24)
[2021-06-16] MEDS: MEGESTROL ACETATE 400 MG/10 ML UDC PO SCH (09:24)
[2021-06-16] MEDS: FUROSEMIDE 40MG TABLET PO SCH (09:25)
[2021-06-16] MEDS: SODIUM HYPOCHLORITE 0.125% 473ML SOLUTION TOP SCH (09:25)
[2021-06-16 10:30] LABS: HEMATOCRIT. 24.8 % (36.0-48.0); HEMOGLOBIN. 7.7 g/dL (12.0-16.0); MEAN CORPUSCULAR HEMOGLOBIN 27.3 pg (28.0-32.0); MEAN CORPUSCULAR VOLUME 87.7 fL (81.0-99.0); PLATELET 313 x1000/uL (130-400); RED BLOOD CELL COUNT 2.83 mill/uL (4.2-5.4); RED CELL DISTRIBUTION WIDTH 17.5 % (11.6-14.6)
[2021-06-16 12:00] VITALS: BP 98/49
[2021-06-16] MEDS: DEXT 5%/0.9% NACL 1,000 ML IV SCH (13:09)
[2021-06-16 14:21] LABS: NUCLEATED RED BLOOD CELLS 1 /100 WBC; PLATELET ESTIMATE NORMAL
[2021-06-16 16:00] VITALS: BP 102/50
[2021-06-16 20:18] VITALS: BP 108/71
[2021-06-16] MEDS ORDERED: EPOETIN ALFA-EPBX 10,000 UNIT/ML VIAL SUBCUT SCH (21:00)
[2021-06-17 00:05] VITALS: BP 121/62
[2021-06-17] MEDS: DEXT 5%/0.9% NACL 1,000 ML IV SCH (00:25)
[2021-06-17] MEDS: EPOETIN ALFA-EPBX 4,000 UNIT/ML VIAL SUBCUT SCH (00:26)
[2021-06-17] MEDS: MIRTAZAPINE 15MG TABLET PO SCH ×2 (00:26→21:27)
[2021-06-17] MEDS: EPOETIN ALFA-EPBX 10,000 UNIT/ML VIAL SUBCUT SCH (00:26)
[2021-06-17] MEDS: METRONIDAZOLE 500 MG PREMIX 100 ML IV SCH ×3 (00:26→21:27)
[2021-06-17 04:00] VITALS: BP 142/82
[2021-06-17] MEDS: INSULIN LISPRO 100 UNITS/ML SUBCUT SCH ×4 (05:50→21:00)
[2021-06-17] MEDS: BLOOD SUGAR DIAGNOSTIC STRIP TEST SCH ×4 (05:50→21:28)
[2021-06-17 08:00] VITALS: BP 96/50
[2021-06-17] MEDS: FUROSEMIDE 40MG TABLET PO SCH (08:39)
[2021-06-17] MEDS: SODIUM HYPOCHLORITE 0.125% 473ML SOLUTION TOP SCH (08:39)
[2021-06-17] MEDS: ASCORBIC ACID 500 MG TABLET PO SCH (08:39)
[2021-06-17] MEDS: MEGESTROL ACETATE 400 MG/10 ML UDC PO SCH (08:39)
[2021-06-17] MEDS: ZINC SULFATE 220 MG ( 50 ) CAPSULE PO SCH (08:39)
[2021-06-17] MEDS: METOPROLOL SUCCINATE 50MG ER TABLET PO SCH (08:47)
[2021-06-17 12:00] VITALS: BP 93/43
[2021-06-17 16:00] VITALS: BP 90/47
[2021-06-17] MEDS: SODIUM CHLORIDE 0.9% 1,000 ML IV SCH (17:17)
[2021-06-17 20:44] VITALS: BP 115/69
[2021-06-18] VITALS (7 sets, daily range): BP systolic 100–125; BP diastolic 52–79
[2021-06-18 06:26] LABS: HEMATOCRIT. 23.5 % (36.0-48.0); HEMOGLOBIN. 7.6 g/dL (12.0-16.0); MEAN PLATELET VOLUME 7.6 fl (7.4-10.4); PLATELET 263 x1000/uL (130-400); RED BLOOD CELL COUNT 2.73 mill/uL (4.2-5.4); RED CELL DISTRIBUTION WIDTH 17.7 % (11.6-14.6)
[2021-06-18] MEDS: BLOOD SUGAR DIAGNOSTIC STRIP TEST SCH ×4 (06:44→21:35)
[2021-06-18] MEDS: SODIUM CHLORIDE 0.9% 1,000 ML IV SCH (06:50)
[2021-06-18 06:56] LABS: PHOSPHORUS 2.6 mg/dL (2.5-4.9)
[2021-06-18] MEDS: INSULIN LISPRO 100 UNITS/ML SUBCUT SCH ×4 (07:53→21:00)
[2021-06-18] MEDS: SODIUM HYPOCHLORITE 0.125% 473ML SOLUTION TOP SCH (08:44)
[2021-06-18] MEDS: MEGESTROL ACETATE 400 MG/10 ML UDC PO SCH (08:44)
[2021-06-18] MEDS: ZINC SULFATE 220 MG ( 50 ) CAPSULE PO SCH (08:44)
[2021-06-18] MEDS: ASCORBIC ACID 500 MG TABLET PO SCH (08:45)
[2021-06-18] MEDS: METOPROLOL SUCCINATE 50MG ER TABLET PO SCH (08:45)
[2021-06-18] MEDS: FUROSEMIDE 40MG TABLET PO SCH (08:45)
[2021-06-18 09:53] LABS: PLATELET ESTIMATE NORMAL
[2021-06-18] MEDS ORDERED: POTASSIUM CHLORIDE 10MEQ TABLET SR PO NR (16:30)
[2021-06-18] MEDS ORDERED: POTASSIUM CHLORIDE 20MEQ/PACKET PO NR (20:00)
[2021-06-18 20:26] LABS: HEPATITIS B SURFACE ANTIGEN NEGATIVE
[2021-06-18] MEDS: MIRTAZAPINE 15MG TABLET PO SCH (21:34)
[2021-06-18] MEDS: EPOETIN ALFA-EPBX 4,000 UNIT/ML VIAL SUBCUT SCH (21:35)
[2021-06-18] MEDS: EPOETIN ALFA-EPBX 10,000 UNIT/ML VIAL SUBCUT SCH (21:35)
[2021-06-19] VITALS (21 sets, daily range): BP systolic 80–163; BP diastolic 39–117
[2021-06-19] MEDS: SODIUM CHLORIDE 0.9% 1,000 ML IV SCH (02:06)
[2021-06-19] MEDS: BLOOD SUGAR DIAGNOSTIC STRIP TEST SCH ×3 (07:40→16:28)
[2021-06-19] MEDS: INSULIN LISPRO 100 UNITS/ML SUBCUT SCH ×3 (08:10→16:28)
[2021-06-19] MEDS ORDERED: ETOMIDATE 2MG/ML 10ML VIAL IV ONE (09:39)
[2021-06-19] MEDS ORDERED: VECURONIUM BROMIDE 10 MG/VIAL IV ONE (09:39)
[2021-06-19] MEDS ORDERED: SODIUM CHLORIDE 0.9% 10ML VIAL ONE (09:39)
[2021-06-19] MEDS: ASCORBIC ACID 500 MG TABLET PO SCH (10:21)
[2021-06-19] MEDS: METOPROLOL SUCCINATE 50MG ER TABLET PO SCH (10:21)
[2021-06-19] MEDS: ASPIRIN 81MG TABLET PO SCH (10:21)
[2021-06-19] MEDS: ZINC SULFATE 220 MG ( 50 ) CAPSULE PO SCH (10:21)
[2021-06-19] MEDS: SODIUM HYPOCHLORITE 0.125% 473ML SOLUTION TOP SCH (10:22)
[2021-06-19] MEDS: MEGESTROL ACETATE 400 MG/10 ML UDC PO SCH (10:26)
[2021-06-19 20:36] LABS: BG BASE EXCESS -3.9 mmol/L (-2.0-2.0); BG CARBOXYHEMOGLOBIN 2.2 % (0.5-1.5); BG DEOXYHEMOGLOBIN 0.9 % (0.0-5.0); BG FRACTION INSPIRED OXYGEN 70; BG METHEMOGLOBIN 0.3 % (0.0-1.5); BG OXYGEN SATURATION 99.1 % (92.0-98.5); BG OXYHEMOGLOBIN 96.6 % (94.0-97.0); BG PCO2 37.2 mmHg (35.0-45.0); BG PH 7.369 (7.350-7.450); BG PO2 228.7 mmHg (75.0-100.0); BG SAMPLE SITE LEFT RADIAL; BG TOTAL HEMOGLOBIN 7.5 g/dL (12.0-18.0); BG VENT MODE VENT - AC
[2021-06-19 21:23] LABS: HEMATOCRIT. 25.2 % (36.0-48.0); HEMOGLOBIN. 7.6 g/dL (12.0-16.0); MEAN CORPUSCULAR HEMOGLOBIN 27.8 pg (28.0-32.0); MEAN CORPUSCULAR VOLUME 91.6 fL (81.0-99.0); MEAN PLATELET VOLUME 8.4 fl (7.4-10.4); PLATELET 184 x1000/uL (130-400); RED BLOOD CELL COUNT 2.75 mill/uL (4.2-5.4); RED CELL DISTRIBUTION WIDTH 18.2 % (11.6-14.6)
[2021-06-19] MEDS: MIRTAZAPINE 15MG TABLET PO SCH (22:10)
[2021-06-19 23:04] LABS: PLATELET ESTIMATE NORMAL
[2021-06-20] VITALS (84 sets, daily range): BP systolic 64–160; BP diastolic 32–97
[2021-06-20] MEDS: INSULIN LISPRO 100 UNITS/ML SUBCUT SCH ×4 (05:17→18:00)
[2021-06-20] MEDS: BLOOD SUGAR DIAGNOSTIC STRIP TEST SCH ×4 (05:17→18:19)
[2021-06-20 05:28] LABS: HEMATOCRIT. 22.1 % (36.0-48.0); HEMOGLOBIN. 7.4 g/dL (12.0-16.0); MEAN CORPUSCULAR HEMOGLOBIN 29.3 pg (28.0-32.0); MEAN CORPUSCULAR VOLUME 88.1 fL (81.0-99.0); PLATELET 185 x1000/uL (130-400); RED BLOOD CELL COUNT 2.51 mill/uL (4.2-5.4); RED CELL DISTRIBUTION WIDTH 17.9 % (11.6-14.6)
[2021-06-20] MEDS: METOPROLOL SUCCINATE 50MG ER TABLET PO SCH (09:00)
[2021-06-20 09:32] LABS: BG BASE EXCESS -0.8 mmol/L (-2.0-2.0); BG CARBOXYHEMOGLOBIN 1.8 % (0.5-1.5); BG DEOXYHEMOGLOBIN 0.6 % (0.0-5.0); BG FRACTION INSPIRED OXYGEN 50; BG HCO3 ACT 22.1 mmol/L (22.0-26.0); BG METHEMOGLOBIN 0.2 % (0.0-1.5); BG OXYGEN SATURATION 99.4 % (92.0-98.5); BG OXYHEMOGLOBIN 97.4 % (94.0-97.0); BG PCO2 29.1 mmHg (35.0-45.0); BG PH 7.499 (7.350-7.450); BG TOTAL HEMOGLOBIN 7.2 g/dL (12.0-18.0); BG VENT MODE VENT - AC
[2021-06-20] MEDS: MEGESTROL ACETATE 400 MG/10 ML UDC PO SCH (10:01)
[2021-06-20] MEDS: PANTOPRAZOLE SODIUM 40 MG/VIAL IV SCH (10:01)
[2021-06-20] MEDS: THIAMINE HCL 100MG TABLET PO SCH (10:01)
[2021-06-20] MEDS: ASPIRIN 81MG TABLET PO SCH (10:02)
[2021-06-20] MEDS: ASCORBIC ACID 500 MG TABLET PO SCH (10:02)
[2021-06-20] MEDS: ZINC SULFATE 220 MG ( 50 ) CAPSULE PO SCH (10:09)
[2021-06-20 10:18] LABS: PLATELET ESTIMATE NORMAL
[2021-06-20] MEDS: NOREPINEPHRINE 32 MG in DEXT 5% WATER 218 ML IV PRN (12:20)
[2021-06-20] MEDS ORDERED: VANCOMYCIN 1GM PMX (XELLIA) 200 ML IV NR (15:30)
[2021-06-20] MEDS: SODIUM HYPOCHLORITE 0.125% 473ML SOLUTION TOP SCH (15:41)
[2021-06-20] MEDS: DOPAMINE 400MG/250ML PREMIX 250 ML IV PRN (17:18)
[2021-06-20] MEDS ORDERED: ALTEPLASE 2MG/VIAL ITC NR (18:15)
[2021-06-20] MEDS: DEXAMETHASONE 10 MG/ML VIAL IV SCH (18:20)
[2021-06-20] MEDS: EPOETIN ALFA-EPBX 4,000 UNIT/ML VIAL SUBCUT SCH (20:32)
[2021-06-20] MEDS: MIRTAZAPINE 15MG TABLET PO SCH (20:32)
[2021-06-20] MEDS: EPOETIN ALFA-EPBX 10,000 UNIT/ML VIAL SUBCUT SCH (20:32)
[2021-06-21] VITALS (96 sets, daily range): BP systolic 76–155; BP diastolic 25–97
[2021-06-21 04:47] LABS: HEMATOCRIT. 24.8 % (36.0-48.0); HEMOGLOBIN. 8.1 g/dL (12.0-16.0); MEAN CORPUSCULAR HEMOGLOBIN 28.9 pg (28.0-32.0); MEAN CORPUSCULAR VOLUME 88.8 fL (81.0-99.0); MEAN PLATELET VOLUME 7.8 fl (7.4-10.4); PLATELET 153 x1000/uL (130-400); RED BLOOD CELL COUNT 2.79 mill/uL (4.2-5.4); RED CELL DISTRIBUTION WIDTH 18.1 % (11.6-14.6)
[2021-06-21] MEDS: BLOOD SUGAR DIAGNOSTIC STRIP TEST SCH ×4 (05:15→18:09)
[2021-06-21] MEDS: INSULIN LISPRO 100 UNITS/ML SUBCUT SCH ×4 (05:17→18:09)
[2021-06-21] MEDS: ZINC SULFATE 220 MG ( 50 ) CAPSULE PO SCH (09:52)
[2021-06-21] MEDS: MEGESTROL ACETATE 400 MG/10 ML UDC PO SCH (09:52)
[2021-06-21] MEDS: PANTOPRAZOLE SODIUM 40 MG/VIAL IV SCH (09:52)
[2021-06-21] MEDS: ASPIRIN 81MG TABLET PO SCH (09:52)
[2021-06-21] MEDS: DEXAMETHASONE 10 MG/ML VIAL IV SCH (09:52)
[2021-06-21] MEDS: ASCORBIC ACID 500 MG TABLET PO SCH (09:52)
[2021-06-21] MEDS: SODIUM HYPOCHLORITE 0.125% 473ML SOLUTION TOP SCH (09:52)
[2021-06-21] MEDS: THIAMINE HCL 100MG TABLET PO SCH (09:54)
[2021-06-21] MEDS: DOPAMINE 400MG/250ML PREMIX 250 ML IV PRN (09:59)
[2021-06-21] MEDS ORDERED: NALOXONE HCL 0.4MG/ML VIAL IV PRN (14:00)
[2021-06-21] MEDS ORDERED: MORPHINE SULFATE 2 MG/ML CPJ (NOT FOR IM USE) IV PRN (14:00)
[2021-06-21 15:38] LABS: PLATELET ESTIMATE NORMAL
[2021-06-21 17:47] LABS: BG BASE EXCESS -5.8 mmol/L (-2.0-2.0); BG CARBOXYHEMOGLOBIN 0.9 % (0.5-1.5); BG DEOXYHEMOGLOBIN 2.3 % (0.0-5.0); BG FRACTION INSPIRED OXYGEN 40; BG HCO3 ACT 19.1 mmol/L (22.0-26.0); BG METHEMOGLOBIN 0.3 % (0.0-1.5); BG OXYGEN SATURATION 97.7 % (92.0-98.5); BG OXYHEMOGLOBIN 96.5 % (94.0-97.0); BG PCO2 34.6 mmHg (35.0-45.0); BG PH 7.359 (7.350-7.450); BG PO2 110.9 mmHg (75.0-100.0); BG SAMPLE SITE RIGHT RADIAL; BG TOTAL HEMOGLOBIN 8.8 g/dL (12.0-18.0); BG VENT MODE VENT - AC
[2021-06-21] MEDS: MEROPENEM 1,000 MG in SODIUM CHLORIDE 0.9% 100 ML IV SCH (18:08)
[2021-06-21] MEDS: NOREPINEPHRINE 32 MG in DEXT 5% WATER 218 ML IV PRN (18:08)
[2021-06-21] MEDS: MIRTAZAPINE 15MG TABLET PO SCH (21:41)
[2021-06-22] VITALS (56 sets, daily range): BP systolic 101–135; BP diastolic 31–86
[2021-06-22] MEDS: INSULIN LISPRO 100 UNITS/ML SUBCUT SCH ×4 (01:16→17:17)
[2021-06-22] MEDS: BLOOD SUGAR DIAGNOSTIC STRIP TEST SCH ×4 (06:17→17:03)
[2021-06-22] MEDS: ZINC SULFATE 220 MG ( 50 ) CAPSULE PO SCH (08:49)
[2021-06-22] MEDS: PANTOPRAZOLE SODIUM 40 MG/VIAL IV SCH (08:49)
[2021-06-22] MEDS: ASCORBIC ACID 500 MG TABLET PO SCH (08:49)
[2021-06-22] MEDS: SODIUM HYPOCHLORITE 0.125% 473ML SOLUTION TOP SCH (08:49)
[2021-06-22] MEDS: THIAMINE HCL 100MG TABLET PO SCH (08:49)
[2021-06-22] MEDS: MEGESTROL ACETATE 400 MG/10 ML UDC PO SCH (08:49)
[2021-06-22] MEDS: DEXAMETHASONE 10 MG/ML VIAL IV SCH (08:49)
[2021-06-22] MEDS: ASPIRIN 81MG TABLET PO SCH (08:49)
[2021-06-22] MEDS ORDERED: IPRATROPIUM/ALBUTEROL 0.5-3(2.5)MG/3ML NEB HHN PRN (12:45)
[2021-06-22] MEDS: IPRATROPIUM/ALBUTEROL 0.5-3(2.5)MG/3ML NEB HHN SCH ×2 (15:52→21:05)
[2021-06-22] MEDS: MEROPENEM 1,000 MG in SODIUM CHLORIDE 0.9% 100 ML IV SCH (16:09)
[2021-06-22] MEDS: NOREPINEPHRINE 32 MG in DEXT 5% WATER 218 ML IV PRN (17:14)
[2021-06-22] MEDS: MIRTAZAPINE 15MG TABLET PO SCH (21:19)
[2021-06-23] VITALS (59 sets, daily range): BP systolic 89–125; BP diastolic 35–72
[2021-06-23] MEDS: BLOOD SUGAR DIAGNOSTIC STRIP TEST SCH ×4 (00:25→17:42)
[2021-06-23] MEDS: INSULIN LISPRO 100 UNITS/ML SUBCUT SCH ×4 (00:30→18:09)
[2021-06-23] MEDS: IPRATROPIUM/ALBUTEROL 0.5-3(2.5)MG/3ML NEB HHN SCH ×6 (04:25→20:56)
[2021-06-23 06:19] LABS: HEMATOCRIT. 23.9 % (36.0-48.0); HEMOGLOBIN. 7.4 g/dL (12.0-16.0); MEAN CORPUSCULAR HEMOGLOBIN 28.7 pg (28.0-32.0); MEAN PLATELET VOLUME 10.4 fl (7.4-10.4); PLATELET 163 x1000/uL (130-400); RED CELL DISTRIBUTION WIDTH 19.9 % (11.6-14.6)
[2021-06-23 08:50] LABS: BG BASE EXCESS -1.4 mmol/L (-2.0-2.0); BG CARBOXYHEMOGLOBIN 0.8 % (0.5-1.5); BG DEOXYHEMOGLOBIN 1.3 % (0.0-5.0); BG FRACTION INSPIRED OXYGEN 40; BG HCO3 ACT 22.6 mmol/L (22.0-26.0); BG METHEMOGLOBIN 0.3 % (0.0-1.5); BG OXYGEN SATURATION 98.7 % (92.0-98.5); BG OXYHEMOGLOBIN 97.6 % (94.0-97.0); BG PCO2 34.7 mmHg (35.0-45.0); BG PH 7.432 (7.350-7.450); BG PO2 166.4 mmHg (75.0-100.0); BG SAMPLE SITE RIGHT RADIAL; BG TOTAL HEMOGLOBIN 7.7 g/dL (12.0-18.0); BG TOTAL RESPIRATORY RATE 18 b/min; BG VENT MODE VENT - AC
[2021-06-23] MEDS: MEGESTROL ACETATE 400 MG/10 ML UDC PO SCH (10:08)
[2021-06-23] MEDS: THIAMINE HCL 100MG TABLET PO SCH (10:09)
[2021-06-23] MEDS: ZINC SULFATE 220 MG ( 50 ) CAPSULE PO SCH (10:09)
[2021-06-23] MEDS: PANTOPRAZOLE SODIUM 40 MG/VIAL IV SCH (10:09)
[2021-06-23] MEDS: DEXAMETHASONE 10 MG/ML VIAL IV SCH (10:09)
[2021-06-23] MEDS: ASCORBIC ACID 500 MG TABLET PO SCH (10:09)
[2021-06-23] MEDS: ASPIRIN 81MG TABLET PO SCH (10:09)
[2021-06-23] MEDS: SODIUM HYPOCHLORITE 0.125% 473ML SOLUTION TOP SCH (10:10)
[2021-06-23 10:48] LABS: PLATELET ESTIMATE NORMAL
[2021-06-23] MEDS: MEROPENEM 1,000 MG in SODIUM CHLORIDE 0.9% 100 ML IV SCH (16:04)
[2021-06-23] MEDS: MIRTAZAPINE 15MG TABLET PO SCH (20:51)
[2021-06-24] VITALS (68 sets, daily range): BP systolic 81–141; BP diastolic 37–96
[2021-06-24] MEDS: BLOOD SUGAR DIAGNOSTIC STRIP TEST SCH ×4 (00:21→17:21)
[2021-06-24] MEDS: INSULIN LISPRO 100 UNITS/ML SUBCUT SCH ×4 (00:30→17:22)
[2021-06-24] MEDS: IPRATROPIUM/ALBUTEROL 0.5-3(2.5)MG/3ML NEB HHN SCH ×5 (00:54→16:48)
[2021-06-24 06:12] LABS: INR 1.2; PROTHROMBIN TIME 12.6 sec (9.6-11.0)
[2021-06-24] MEDS: MEGESTROL ACETATE 400 MG/10 ML UDC PO SCH (08:51)
[2021-06-24] MEDS: ASPIRIN 81MG TABLET PO SCH (08:51)
[2021-06-24] MEDS: ASCORBIC ACID 500 MG TABLET PO SCH (08:51)
[2021-06-24] MEDS: ZINC SULFATE 220 MG ( 50 ) CAPSULE PO SCH (08:51)
[2021-06-24] MEDS: DEXAMETHASONE 10 MG/ML VIAL IV SCH (08:51)
[2021-06-24] MEDS: PANTOPRAZOLE SODIUM 40 MG/VIAL IV SCH (08:51)
[2021-06-24] MEDS: THIAMINE HCL 100MG TABLET PO SCH (08:51)
[2021-06-24] MEDS: SODIUM HYPOCHLORITE 0.125% 473ML SOLUTION TOP SCH (08:53)
[2021-06-24 09:02] LABS: BG BASE EXCESS -1.7 mmol/L (-2.0-2.0); BG CARBOXYHEMOGLOBIN 1.4 % (0.5-1.5); BG DEOXYHEMOGLOBIN 1.5 % (0.0-5.0); BG FRACTION INSPIRED OXYGEN 40; BG HCO3 ACT 23.2 mmol/L (22.0-26.0); BG METHEMOGLOBIN 0.3 % (0.0-1.5); BG OXYGEN SATURATION 98.5 % (92.0-98.5); BG OXYHEMOGLOBIN 96.8 % (94.0-97.0); BG PCO2 39.6 mmHg (35.0-45.0); BG PH 7.385 (7.350-7.450); BG PO2 139.8 mmHg (75.0-100.0); BG SAMPLE SITE RIGHT RADIAL; BG TOTAL HEMOGLOBIN 7.3 g/dL (12.0-18.0); BG VENT MODE VENT - SIMV
[2021-06-24 11:23] LABS: BG BASE EXCESS -3.8 mmol/L (-2.0-2.0); BG DEOXYHEMOGLOBIN 1.5 % (0.0-5.0); BG FRACTION INSPIRED OXYGEN 40; BG HCO3 ACT 20.8 mmol/L (22.0-26.0); BG METHEMOGLOBIN 0.2 % (0.0-1.5); BG OXYGEN SATURATION 98.5 % (92.0-98.5); BG OXYHEMOGLOBIN 97.3 % (94.0-97.0); BG PCO2 35.4 mmHg (35.0-45.0); BG PH 7.387 (7.350-7.450); BG PO2 146.6 mmHg (75.0-100.0); BG SAMPLE SITE RIGHT RADIAL; BG TOTAL HEMOGLOBIN 7.6 g/dL (12.0-18.0); BG VENT MODE VENT - CPAP
[2021-06-24 12:54] LABS: HEMATOCRIT. 26.2 % (36.0-48.0); HEMOGLOBIN. 8.1 g/dL (12.0-16.0); MEAN CORPUSCULAR HEMOGLOBIN 29.4 pg (28.0-32.0); MEAN CORPUSCULAR VOLUME 94.8 fL (81.0-99.0); MEAN PLATELET VOLUME 10.5 fl (7.4-10.4); PLATELET 150 x1000/uL (130-400); RED BLOOD CELL COUNT 2.76 mill/uL (4.2-5.4); RED CELL DISTRIBUTION WIDTH 20.2 % (11.6-14.6)
[2021-06-24 13:25] LABS: NUCLEATED RED BLOOD CELLS 3 /100 WBC
[2021-06-24 13:26] LABS: PLATELET ESTIMATE NORMAL
[2021-06-24 13:54] LABS: CHLORIDE 108 mEq/L (98-107)
[2021-06-24] MEDS: PHENYLEPHRINE 100 MG in DEXT 5% WATER 240 ML IV PRN (16:58)
[2021-06-24] MEDS: MEROPENEM 1,000 MG in SODIUM CHLORIDE 0.9% 100 ML IV SCH (16:58)
[2021-06-24] MEDS: MIRTAZAPINE 15MG TABLET PO SCH (21:42)
[2021-06-24] MEDS ORDERED: IPRATROPIUM/ALBUTEROL 0.5-3(2.5)MG/3ML NEB ORI SCH (22:30)
[2021-06-24 22:32] LABS: HEPATITIS B SURFACE ANTIGEN NEGATIVE
[2021-06-25] VITALS (48 sets, daily range): BP systolic 81–120; BP diastolic 42–71
[2021-06-25 05:48] LABS: HEMATOCRIT. 23.7 % (36.0-48.0); HEMOGLOBIN. 7.2 g/dL (12.0-16.0); MEAN CORPUSCULAR VOLUME 95.7 fL (81.0-99.0); MEAN PLATELET VOLUME 10.9 fl (7.4-10.4); PLATELET 172 x1000/uL (130-400); RED BLOOD CELL COUNT 2.48 mill/uL (4.2-5.4)
[2021-06-25] MEDS: BLOOD SUGAR DIAGNOSTIC STRIP TEST SCH ×5 (06:00→23:32)
[2021-06-25] MEDS: INSULIN LISPRO 100 UNITS/ML SUBCUT SCH ×5 (06:00→23:31)
[2021-06-25] MEDS: DEXAMETHASONE 10 MG/ML VIAL IV SCH (08:11)
[2021-06-25] MEDS: MEGESTROL ACETATE 400 MG/10 ML UDC PO SCH (08:11)
[2021-06-25] MEDS: PANTOPRAZOLE SODIUM 40 MG/VIAL IV SCH (08:11)
[2021-06-25] MEDS: SODIUM HYPOCHLORITE 0.125% 473ML SOLUTION TOP SCH (08:12)
[2021-06-25] MEDS: THIAMINE HCL 100MG TABLET PO SCH (08:12)
[2021-06-25] MEDS: ZINC SULFATE 220 MG ( 50 ) CAPSULE PO SCH (08:12)
[2021-06-25] MEDS: ASPIRIN 81MG TABLET PO SCH (08:12)
[2021-06-25] MEDS: ASCORBIC ACID 500 MG TABLET PO SCH (08:12)
[2021-06-25] MEDS: MIDODRINE HCL 5MG TABLET PO SCH ×3 (10:37→17:54)
[2021-06-25] MEDS: ALBUTEROL 6.7GM HFA INHALER ORI SCH ×3 (12:00→23:32)
[2021-06-25 16:46] LABS: NUCLEATED RED BLOOD CELLS 6 /100 WBC; PLATELET ESTIMATE NORMAL
[2021-06-25] MEDS: MEROPENEM 1,000 MG in SODIUM CHLORIDE 0.9% 100 ML IV SCH (17:55)
[2021-06-25] MEDS: MIRTAZAPINE 15MG TABLET PO SCH (21:00)
[2021-06-26] VITALS (42 sets, daily range): BP systolic 65–134; BP diastolic 32–68
[2021-06-26] MEDS: BLOOD SUGAR DIAGNOSTIC STRIP TEST SCH ×3 (06:00→17:31)
[2021-06-26] MEDS: ALBUTEROL 6.7GM HFA INHALER ORI SCH (06:00)
[2021-06-26 06:01] LABS: HEMOGLOBIN. 7.4 g/dL (12.0-16.0); MEAN CORPUSCULAR VOLUME 97.4 fL (81.0-99.0); MEAN PLATELET VOLUME 9.8 fl (7.4-10.4); PLATELET 217 x1000/uL (130-400); RED BLOOD CELL COUNT 2.46 mill/uL (4.2-5.4); RED CELL DISTRIBUTION WIDTH 21.6 % (11.6-14.6)
[2021-06-26] MEDS: INSULIN LISPRO 100 UNITS/ML SUBCUT SCH ×3 (07:07→17:32)
[2021-06-26] MEDS: ASCORBIC ACID 500 MG TABLET PO SCH (09:13)
[2021-06-26] MEDS: DEXAMETHASONE 10 MG/ML VIAL IV SCH (09:14)
[2021-06-26] MEDS: MEGESTROL ACETATE 400 MG/10 ML UDC PO SCH (09:14)
[2021-06-26] MEDS: PANTOPRAZOLE SODIUM 40 MG/VIAL IV SCH (09:14)
[2021-06-26] MEDS: MIDODRINE HCL 5MG TABLET PO SCH ×3 (09:14→17:30)
[2021-06-26] MEDS: ASPIRIN 81MG TABLET PO SCH (09:14)
[2021-06-26] MEDS: ZINC SULFATE 220 MG ( 50 ) CAPSULE PO SCH (09:14)
[2021-06-26] MEDS: THIAMINE HCL 100MG TABLET PO SCH (09:14)
[2021-06-26] MEDS: SODIUM HYPOCHLORITE 0.125% 473ML SOLUTION TOP SCH (09:15)
[2021-06-26 11:38] LABS: NUCLEATED RED BLOOD CELLS 2 /100 WBC; PLATELET ESTIMATE NORMAL
[2021-06-26] MEDS: MEROPENEM 1,000 MG in SODIUM CHLORIDE 0.9% 100 ML IV SCH (17:30)
[2021-06-26 18:22] LABS: BG BASE EXCESS -5.8 mmol/L (-2.0-2.0); BG CARBOXYHEMOGLOBIN 1.3 % (0.5-1.5); BG FRACTION INSPIRED OXYGEN 40; BG HCO3 ACT 23.5 mmol/L (22.0-26.0); BG METHEMOGLOBIN 0.1 % (0.0-1.5); BG OXYGEN SATURATION 89.9 % (92.0-98.5); BG OXYHEMOGLOBIN 88.6 % (94.0-97.0); BG PCO2 72.1 mmHg (35.0-45.0); BG PH 7.131 (7.350-7.450); BG PO2 77.9 mmHg (75.0-100.0); BG SAMPLE SITE RIGHT RADIAL; BG TOTAL HEMOGLOBIN 8.3 g/dL (12.0-18.0); BG VENT MODE NASAL CANNULA
[2021-06-26] MEDS: PHENYLEPHRINE 100 MG in DEXT 5% WATER 240 ML IV PRN (20:01)
[2021-06-26] MEDS: MIRTAZAPINE 15MG TABLET PO SCH (21:35)
[2021-06-26] MEDS ORDERED: SODIUM BICARBONATE 8.4% 1 MEQ/ML 50ML SYR IV NR (22:41)
[2021-06-26] MEDS ORDERED: SODIUM CHLORIDE 0.9% 500 ML IV NR (22:42)
[2021-06-26] MEDS: NOREPINEPHRINE 32 MG in DEXT 5% WATER 218 ML IV PRN (23:00)
[2021-06-27] VITALS (37 sets, daily range): BP systolic 55–176; BP diastolic 27–144
[2021-06-27] MEDS: BLOOD SUGAR DIAGNOSTIC STRIP TEST SCH ×3 (00:53→11:46)
[2021-06-27 01:15] LABS: BG BASE EXCESS -10.3 mmol/L (-2.0-2.0); BG CARBOXYHEMOGLOBIN 1.1 % (0.5-1.5); BG DEOXYHEMOGLOBIN 1.4 % (0.0-5.0); BG FRACTION INSPIRED OXYGEN 85; BG HCO3 ACT 19.9 mmol/L (22.0-26.0); BG METHEMOGLOBIN 0.2 % (0.0-1.5); BG OXYGEN SATURATION 98.6 % (92.0-98.5); BG OXYHEMOGLOBIN 97.3 % (94.0-97.0); BG PCO2 71.1 mmHg (35.0-45.0); BG PH 7.065 (7.350-7.450); BG PO2 194.9 mmHg (75.0-100.0); BG SAMPLE SITE RIGHT BRACHIAL; BG TOTAL HEMOGLOBIN 9.1 g/dL (12.0-18.0); BG TOTAL RESPIRATORY RATE 30 b/min; BG VENT MODE MASK - BIPAP
[2021-06-27] MEDS: PHENYLEPHRINE 100 MG in DEXT 5% WATER 240 ML IV PRN ×2 (02:13→11:09)
[2021-06-27] MEDS: INSULIN LISPRO 100 UNITS/ML SUBCUT SCH ×3 (06:45→11:46)
[2021-06-27] MEDS: NOREPINEPHRINE 32 MG in DEXT 5% WATER 218 ML IV PRN ×2 (06:46→13:24)
[2021-06-27 08:14] LABS: BG BASE EXCESS -17.8 mmol/L (-2.0-2.0); BG CARBOXYHEMOGLOBIN 0.8 % (0.5-1.5); BG DEOXYHEMOGLOBIN 1.5 % (0.0-5.0); BG HCO3 ACT 10.5 mmol/L (22.0-26.0); BG METHEMOGLOBIN 0.3 % (0.0-1.5); BG OXYGEN SATURATION 98.5 % (92.0-98.5); BG OXYHEMOGLOBIN 97.4 % (94.0-97.0); BG PCO2 33.8 mmHg (35.0-45.0); BG PO2 159.4 mmHg (75.0-100.0); BG SAMPLE SITE RIGHT RADIAL; BG TOTAL HEMOGLOBIN 10.2 g/dL (12.0-18.0); BG VENT MODE MASK - BIPAP
[2021-06-27] MEDS: SODIUM HYPOCHLORITE 0.125% 473ML SOLUTION TOP SCH (08:27)
[2021-06-27] MEDS: ASCORBIC ACID 500 MG TABLET PO SCH (08:27)
[2021-06-27] MEDS: MEGESTROL ACETATE 400 MG/10 ML UDC PO SCH (08:27)
[2021-06-27] MEDS: PANTOPRAZOLE SODIUM 40 MG/VIAL IV SCH (08:27)
[2021-06-27] MEDS: MIDODRINE HCL 5MG TABLET PO SCH ×2 (08:27→13:24)
[2021-06-27] MEDS: ASPIRIN 81MG TABLET PO SCH (08:27)
[2021-06-27] MEDS: THIAMINE HCL 100MG TABLET PO SCH (08:27)
[2021-06-27] MEDS: DEXAMETHASONE 10 MG/ML VIAL IV SCH (08:27)
[2021-06-27] MEDS: ZINC SULFATE 220 MG ( 50 ) CAPSULE PO SCH (08:27)
[2021-06-27] MEDS: DOPAMINE 400MG/250ML PREMIX 250 ML IV PRN (12:48)
== END 2021-06-27 16:46 | DRG 870 ==
LOC: ER 13:24 → MICUSO 06-10 00:05 → 6WST 06-10 13:45 → 7WST 06-15 11:14 → MICUSO 06-19 19:45 → MICUNO 06-27 11:52
PROVIDERS: ADMIT Family Medicine Adult Medicine; ATTEND Internal Medicine
PROC: 5A1D70Z Performance of Urinary Filtration, Intermittent, Less than 6 Hours Per Day (ICD-10-PCS; 2021-06-10)
PROC: 5A1D70Z Performance of Urinary Filtration, Intermittent, Less than 6 Hours Per Day (ICD-10-PCS; 2021-06-12)
PROC: 5A1D70Z Performance of Urinary Filtration, Intermittent, Less than 6 Hours Per Day (ICD-10-PCS; 2021-06-16)
PROC: 5A1D70Z Performance of Urinary Filtration, Intermittent, Less than 6 Hours Per Day (ICD-10-PCS; 2021-06-18)
PROC: 5A1955Z Respiratory Ventilation, Greater than 96 Consecutive Hours (ICD-10-PCS; principal; 2021-06-19)
PROC: 0BH17EZ Insertion of Endotracheal Airway into Trachea, Via Natural or Artificial Opening (ICD-10-PCS; 2021-06-19)
PROC: B54BZZA Ultrasonography of Right Lower Extremity Veins, Guidance (ICD-10-PCS; 2021-06-20)
PROC: 06HY33Z Insertion of Infusion Device into Lower Vein, Percutaneous Approach (ICD-10-PCS; 2021-06-20)
PROC: 5A1D70Z Performance of Urinary Filtration, Intermittent, Less than 6 Hours Per Day (ICD-10-PCS; 2021-06-21)
PROC: 5A1D70Z Performance of Urinary Filtration, Intermittent, Less than 6 Hours Per Day (ICD-10-PCS; 2021-06-24)
PROC: 5A09357 Assistance with Respiratory Ventilation, Less than 24 Consecutive Hours, Continuous Positive Airway Pressure (ICD-10-PCS; 2021-06-26)
PROC: 5A1D70Z Performance of Urinary Filtration, Intermittent, Less than 6 Hours Per Day (ICD-10-PCS; 2021-06-26)
DX: A41.89 Other specified sepsis (principal); L89.154 Pressure ulcer of sacral region, stage 4; R53.2 Functional quadriplegia; E43 Unspecified severe protein-calorie malnutrition; N18.6 End stage renal disease; U07.1 COVID-19; J96.01 Acute respiratory failure with hypoxia; J12.82 Pneumonia due to coronavirus disease 2019; J15.1 Pneumonia due to Pseudomonas; J15.6 Pneumonia due to other Gram-negative bacteria; R65.21 Severe sepsis with septic shock; I12.0 Hypertensive chronic kidney disease with stage 5 chronic kidney disease or end stage renal disease; N82.3 Fistula of vagina to large intestine; L02.212 Cutaneous abscess of back [any part, except buttock and flank]; E87.1 Hypo-osmolality and hyponatremia; I48.92 Unspecified atrial flutter; G93.40 Encephalopathy, unspecified; M46.28 Osteomyelitis of vertebra, sacral and sacrococcygeal region; J90 Pleural effusion, not elsewhere classified; Z66 Do not resuscitate; D50.9 Iron deficiency anemia, unspecified; E78.00 Pure hypercholesterolemia, unspecified; E78.5 Hyperlipidemia, unspecified; E87.6 Hypokalemia; F02.80 Dementia in other diseases classified elsewhere, unspecified severity, without behavioral disturbance, psychotic disturbance, mood disturbance, and anxiety; G30.9 Alzheimer's disease, unspecified; I27.20 Pulmonary hypertension, unspecified; I48.91 Unspecified atrial fibrillation; K52.9 Noninfective gastroenteritis and colitis, unspecified; E11.42 Type 2 diabetes mellitus with diabetic polyneuropathy; L89.616 Pressure-induced deep tissue damage of right heel; R00.1 Bradycardia, unspecified; E11.22 Type 2 diabetes mellitus with diabetic chronic kidney disease; R79.82 Elevated C-reactive protein (CRP); K57.30 Diverticulosis of large intestine without perforation or abscess without bleeding; S80.922A Unspecified superficial injury of left lower leg, initial encounter; X58.XXXA Exposure to other specified factors, initial encounter; K62.89 Other specified diseases of anus and rectum; E87.5 Hyperkalemia; Z99.2 Dependence on renal dialysis; Z86.73 Personal history of transient ischemic attack (TIA), and cerebral infarction without residual deficits; Z79.2 Long term (current) use of antibiotics; Z79.82 Long term (current) use of aspirin; Z79.899 Other long term (current) drug therapy; Y93.89 Activity, other specified; Y92.89 Other specified places as the place of occurrence of the external cause; Y99.8 Other external cause status; Z68.28 Body mass index [BMI] 28.0-28.9, adult
CPT/HCPCS: 31500; 36415; 36600; 71045; 71250; 74178; 76937; 80048; 80053; 80202; 82040; 82375; 82805; 82962; 83540; 83550; 83735; 83880; 84100; 84134; 84145; 85025; 85651; 86140; 86705; 86709; 86803; 86850; 86900; 86920; 87070; 87077; 87186; 87340; 87426; 92610; 93005; 93970; 94002; 94003; 94640; 94660; 97162; 97165; 99291; A6261; C1752; C1893; C9113; J0610; J0692; J0885; J1100; J1265; J1644; J1815; J1940; J2185; J2370; J2997; J3370; J3490; J7030; J7040; J7042; J7050; J7060; Q9963; Q9967